=== PATIENT | male | born 1985 | race African-American/Black ===

== ENCOUNTER 2016-11-13 21:02 | Emergency (ER) | payer MEDICAID, OTHER ==
[2016-11-13] MEDS ORDERED: cefTRIAXone SOD 250 MG VIAL (J0696) As Ordered ONE (21:29)
[2016-11-13] MEDS ORDERED: LIDOCAINE 1% MDV 20ML VIAL As Ordered ONE (21:29)
--- NOTE | 2016-11-13 22:20 | REPUSA ---
Clinical history: Pain. Findings: Real-time ultrasound imaging of the testicles and scrotum was performed. The right testicle measures 4.3 x 2.5 x 3.1 cm. The left testicle measures 3.9 x 2.2 x 3.0 cm. The testicles demonstrat e normal echo texture and echogenicity. Normal color Doppler flow and arterial waveforms are seen holli aterally. No fluid collections are seen. Impression: Unremarkable ultrasound examination of the testicles.
--- NOTE | 2016-11-13 22:25 | EDDOCDS ---
Physician Documentation [facility] Name: Lio Dacosta Age: 31 yrs Sex: Male : 1985 Arrival Date: 11/13/2016 Time: 21:02 Bed PR Private MD: NO PRIMARY PHYSICIAN, . Disposition: 11/13/16 22:10 Discharged to Home/Self Care. Impression: Epididymitis. - Condition is Stable. - Discharge Instructions: Epididymitis. - Prescriptions for Doxycycline Hyclate 100 mg Oral Tablet - take 1 tablet by ORAL route every 12 hours; 20 tablet. Ibuprofen 600 mg Oral Tablet - take 1 tablet by ORAL route every 6 hours As needed take with food; 30 tablet. - Medication Reconciliation, Local Pharmacy Hours form. - [facility]; When: 4 - 5 days; Reason: Recheck today's complaints, Continuance of care. - Problem is an ongoing problem. - Symptoms are unchanged. Historical: - Allergies: no known allergies; - Home Meds: 1. none - PMHx: none; - PSHx: none; - Social history: Smoking status: Patient states was never smoker of tobacco. Patient uses street drugs, marijuana, No barriers to communication noted, The patient speaks fluent Yakut. - Family history: Not pertinent. - : The pt / caregiver states he / she is not on anticoagulants. Home medication list is obtained from the patient. - Exposure Risk Screening:: None identified. Vital Signs: 11/13 21:03 BP 158 / 60; Pulse 66; Resp 18 S; Temp 97.8(O); Pulse Ox 100% on R/A; Weight 68.04 kg / dd6 150 lbs (R); Height 5 ft. 8 in. (172.72 cm) (R); 22:21 BP 122 / 70; Pulse 70; Resp 20 S; Temp 96.3(O); Pulse Ox 100% on R/A; ms2 21:03 Body Mass Index 22.81 (68.04 kg, 172.72 cm) dd6 MDM: 21:20 cefTRIAXone 250 mg IM once ordered. ke 21:21 US Scrotal Ordered. EDMS 21:52 Financial registration complete. gjb 21:56 DUPLEX SCAN LIMITED (DOPPLER) Ordered. EDMS 22:12 [place] [place] was scanned into [employer] and attached to record. gjb Administered Medications: 21:37 Drug: cefTRIAXone 250 mg Route: IM; Site: right gluteus; [facility] Signatures: Dispatcher [employer] Ermias Nina RN RN ms2 Rosendo Gonsalves FNP FNP ke Smith, Mallory, RN RN ms18 Izzy Peralta Jane RN [facility] The chart was reviewed and I authenticate all verbal orders and agree with the evaluation and treatment provided.Attachments: 22:12 [place] [place] leonardo MTDD
--- NOTE | 2016-11-13 22:25 | EDDOCDS ---
Nurse's Notes [facility] Name: Lio Dacosta Age: 31 yrs Sex: Male : 1985 Arrival Date: 11/13/2016 Time: 21:02 Bed PR Private MD: NO PRIMARY PHYSICIAN, . Diagnosis: Epididymitis Presentation: 11/13 21:04 Presenting complaint: Patient states: that he is having R testicle pain for approx 1 ms18 week. Adult Sepsis Screening: The patient does not have new or worsening altered mentation. Patient's respiratory rate is less than 22. Systolic blood pressure is greater than 100. Patient has a qSOFA score of 0- Negative Sepsis Screen. Suicide/Homicide risk assessment- the patient denies having any suicidal and/or homicidal ideations and does not present with any other emotional, behavioral or mental health complaints. Status: Patient is not a environmental services tech or dependent. Transition of care: patient was not received from another setting of care. 21:04 Acuity: KHURRAM Level 3 ms18 21:04 Method Of Arrival: Walkin/Carried/Asstd ms18 Triage Assessment: 21:05 General: Appears in no apparent distress, Behavior is appropriate for age, cooperative. ms18 Pain: Location: pelvis Pain currently is 7 out of 10 on a pain scale. HIV screening NA for this visit Offered previously. Neurological: No deficits noted. Respiratory: Airway is patent Respiratory effort is even, unlabored. :. Derm: Skin is pink, warm & dry. normal. Historical: - Allergies: no known allergies; - Home Meds: 1. none - PMHx: none; - PSHx: none; - Social history: Smoking status: Patient states was never smoker of tobacco. Patient uses street drugs, marijuana, No barriers to communication noted, The patient speaks fluent Lithuanian. - Family history: Not pertinent. - : The pt / caregiver states he / she is not on anticoagulants. Home medication list is obtained from the patient. - Exposure Risk Screening:: None identified. Screenin:23 Screening information is obtained from prior medical records. Fall risk: No risks ms2 identified. Assistance ADL's: requires no assistance with activities of daily living. Abuse/DV Screen: The patient / caregiver reports he/she is: not in a situation that causes fear, pain or injury. Nutritional screening: No deficits noted. Advance Directives: Currently, there is no health care proxy. There is no active DNR order. There is no living will. There is no Power of Chief Engineer. Advance directive information has not previously been placed in an [facility] medical record. Further advance directive information is declined. home support is adequate. Assessment: 22:21 Adult Sepsis Screening: The patient does not have new or worsening altered mentation. ms2 Patient's respiratory rate is less than 22. Systolic blood pressure is greater than 100. Patient has a qSOFA score of 0- Negative Sepsis Screen. General: Appears in no apparent distress, Behavior is cooperative, pleasant. Pain: Pain currently is 7 out of 10 on a pain scale. Neurological: Level of Consciousness is awake, alert, obeys commands. Respiratory: No deficits noted. Airway is patent Respiratory effort is even, unlabored, Respiratory pattern is regular, symmetrical. Derm: Skin is pink, warm & dry. Musculoskeletal: Range of motion intact in all extremities. Vital Signs: 21:03 BP 158 / 60; Pulse 66; Resp 18 S; Temp 97.8(O); Pulse Ox 100% on R/A; Weight 68.04 kg dd6 (R); Height 5 ft. 8 in. (172.72 cm) (R); 22:21 BP 122 / 70; Pulse 70; Resp 20 S; Temp 96.3(O); Pulse Ox 100% on R/A; ms2 21:03 Body Mass Index 22.81 (68.04 kg, 172.72 cm) dd6 Vitals: 21:03 Log In Time: November 13, 2016 at 21:01. dd6 ED Course: 21:03 Patient visited by Pepito Burt PCA. dd6 21:03 NO PRIMARY PHYSICIAN, . is Private Physician. dd6 21:03 Patient moved to Waiting dd6 21:04 Patient moved to Pre RCE dd6 21:05 Triage Initiated ms18 21:07 Patient moved to Triage 2 ms18 21:15 [facility] ke 21:16 Patient visited by Rosendo Gonsalves FNP. ke 21:16 Patient visited by Rosendo Gonsalves FNP. ke 21:39 Patient moved to Ultrasound dmg 21:51 Patient moved to TR1 ms18 21:55 Patient visited by Rosendo Gonsalves FNP. ke 22:10 [facility] is Referral Physician. ke 22:12 [facility] Payment Agreement was scanned into [employer] and attached to record. gjb 22:14 Patient moved to PR ms2 22:23 The patient / caregiver is instructed regarding the plan of care and ED course. ms2 22:23 No IV's were initiated during this patient's visit. No procedures done that require ms2 assistance. Administered Medications: 21:37 Drug: cefTRIAXone 250 mg Route: IM; Site: right gluteus; c[facility] Order Results: There are currently no results for this order. Outcome: 22:10 Discharge ordered by Provider. ke 22:23 Discharge Assessment: patient administered narcotics - no. The following High Risk ms2 Discharge criteria are identified: None. Discharged to home ambulatory. Condition: stable. Discharge instructions given to patient, Instructed on discharge instructions, follow up and referral plans. medication usage, Demonstrated understanding of instructions, medications, Pt was receptive of discharge instructions/ teaching. Prescriptions given X 2 faxed. Ultrasound Study completed. Property sent home with patient. 22:24 Patient left the ED. ms2 Signatures: Ermias Whitney,RN RN ms2 Lily Aguirre Karl, QUARTZ ORIENTATOR QUARTZ ORIENTATOR Pepito Burt, CONDITIONING ROOM WORKER CONDITIONING ROOM WORKER dd6 Claudette VasquezRN RN Miladis Banuelos RN RN ms18 Izzy Peralta MTDD
--- NOTE | 2016-11-15 23:25 | EDDOCDS ---
Nurse's Notes [facility] Name: Lio Dacosta Age: 31 yrs Sex: Male : 1985 Arrival Date: 11/13/2016 Time: 21:02 Bed PR Private MD: NO PRIMARY PHYSICIAN, . Diagnosis: Epididymitis Presentation: 11/13 21:04 Presenting complaint: Patient states: that he is having R testicle pain for approx 1 ms18 week. Adult Sepsis Screening: The patient does not have new or worsening altered mentation. Patient's respiratory rate is less than 22. Systolic blood pressure is greater than 100. Patient has a qSOFA score of 0- Negative Sepsis Screen. Suicide/Homicide risk assessment- the patient denies having any suicidal and/or homicidal ideations and does not present with any other emotional, behavioral or mental health complaints. Status: Patient is not a sales agent food vending service or dependent. Transition of care: patient was not received from another setting of care. 21:04 Acuity: KHURRAM Level 3 ms18 21:04 Method Of Arrival: Walkin/Carried/Asstd ms18 Triage Assessment: 21:05 General: Appears in no apparent distress, Behavior is appropriate for age, cooperative. ms18 Pain: Location: pelvis Pain currently is 7 out of 10 on a pain scale. HIV screening NA for this visit Offered previously. Neurological: No deficits noted. Respiratory: Airway is patent Respiratory effort is even, unlabored. :. Derm: Skin is pink, warm & dry. normal. Historical: - Allergies: no known allergies; - Home Meds: 1. none - PMHx: none; - PSHx: none; - Social history: Smoking status: Patient states was never smoker of tobacco. Patient uses street drugs, marijuana, No barriers to communication noted, The patient speaks fluent Czech. - Family history: Not pertinent. - : The pt / caregiver states he / she is not on anticoagulants. Home medication list is obtained from the patient. - Exposure Risk Screening:: None identified. Screenin:23 Screening information is obtained from prior medical records. Fall risk: No risks ms2 identified. Assistance ADL's: requires no assistance with activities of daily living. Abuse/DV Screen: The patient / caregiver reports he/she is: not in a situation that causes fear, pain or injury. Nutritional screening: No deficits noted. Advance Directives: Currently, there is no health care proxy. There is no active DNR order. There is no living will. There is no Power of Refrigerating Engineer Head. Advance directive information has not previously been placed in an [facility] medical record. Further advance directive information is declined. home support is adequate. Assessment: 22:21 Adult Sepsis Screening: The patient does not have new or worsening altered mentation. ms2 Patient's respiratory rate is less than 22. Systolic blood pressure is greater than 100. Patient has a qSOFA score of 0- Negative Sepsis Screen. General: Appears in no apparent distress, Behavior is cooperative, pleasant. Pain: Pain currently is 7 out of 10 on a pain scale. Neurological: Level of Consciousness is awake, alert, obeys commands. Respiratory: No deficits noted. Airway is patent Respiratory effort is even, unlabored, Respiratory pattern is regular, symmetrical. Derm: Skin is pink, warm & dry. Musculoskeletal: Range of motion intact in all extremities. Vital Signs: 21:03 BP 158 / 60; Pulse 66; Resp 18 S; Temp 97.8(O); Pulse Ox 100% on R/A; Weight 68.04 kg dd6 (R); Height 5 ft. 8 in. (172.72 cm) (R); 22:21 BP 122 / 70; Pulse 70; Resp 20 S; Temp 96.3(O); Pulse Ox 100% on R/A; ms2 21:03 Body Mass Index 22.81 (68.04 kg, 172.72 cm) dd6 Vitals: 21:03 Log In Time: November 13, 2016 at 21:01. dd6 ED Course: 21:03 Patient visited by Pepito Burt PCA. dd6 21:03 NO PRIMARY PHYSICIAN, . is Private Physician. dd6 21:03 Patient moved to Waiting dd6 21:04 Patient moved to Pre RCE dd6 21:05 Triage Initiated ms18 21:07 Patient moved to Triage 2 ms18 21:15 [facility] ke 21:16 Patient visited by Rosendo Gonsalves FNP. ke 21:16 Patient visited by Rosendo Gonsalves FNP. ke 21:39 Patient moved to Ultrasound dmg 21:51 Patient moved to TR1 ms18 21:55 Patient visited by Rosendo Gonsalves FNP. ke 22:10 [facility] is Referral Physician. ke 22:12 [facility] Payment Agreement was scanned into [employer] and attached to record. gjb 22:14 Patient moved to PR ms2 22:23 The patient / caregiver is instructed regarding the plan of care and ED course. ms2 22:23 No IV's were initiated during this patient's visit. No procedures done that require ms2 assistance. 22:46 US Scrotal Returned. EDMS 11/14 12:00 T-Sheet-- Draft Copy was scanned into [employer] and attached to record. gb 12:00 Radiology Report was scanned into [employer] and attached to record. gb Administered Medications: 11/13 21:37 Drug: cefTRIAXone 250 mg Route: IM; Site: right gluteus; [facility] Order Results: Radiology Order: US Scrotal Test: US Scrotal REASON FOR EXAMINATION: testicular pain; ; Clinical history: Pain.; Findings: Real-time ultrasound imaging of the testicles and scrotum was performed. The right testicle; measures 4.3 x 2.5 x 3.1 cm. The left testicle measures 3.9 x 2.2 x 3.0 cm. The testicles demonstrat; e normal echo texture and echogenicity. Normal color Doppler flow and arterial waveforms are seen holli; aterally. No fluid collections are seen.; Impression: Unremarkable ultrasound examination of the testicles.; ; Outcome: 22:10 Discharge ordered by Provider. ke 22:23 Discharge Assessment: patient administered narcotics - no. The following High Risk ms2 Discharge criteria are identified: None. Discharged to home ambulatory. Condition: stable. Discharge instructions given to patient, Instructed on discharge instructions, follow up and referral plans. medication usage, Demonstrated understanding of instructions, medications, Pt was receptive of discharge instructions/ teaching. Prescriptions given X 2 faxed. Ultrasound Study completed. Property sent home with patient. 22:24 Patient left the ED. ms2 Signatures: Dispatcher [employer] Ermias Nina,COLLEEN RN ms2 Lily Agiurre Gloria, Reg Reg gb oRsendo Gonsalves, WAFER FABRICATION TECHNICIAN WAFER FABRICATION TECHNICIAN Pepito Beal, LUMBER ESTIMATOR LUMBER ESTIMATOR dd6 Claudette Vasquez RN RN [facility] Miladis Rodríguez RN RN ms18 Izzy Peralta Chart Complete MTDD
--- NOTE | 2016-11-15 23:25 | EDDOCDS ---
Physician Documentation [facility] Name: Lio Dacosta Age: 31 yrs Sex: Male : 1985 Arrival Date: 11/13/2016 Time: 21:02 Bed PR Private MD: NO PRIMARY PHYSICIAN, . Disposition: 11/13/16 22:10 Discharged to Home/Self Care. Impression: Epididymitis. - Condition is Stable. - Discharge Instructions: Epididymitis. - Prescriptions for Doxycycline Hyclate 100 mg Oral Tablet - take 1 tablet by ORAL route every 12 hours; 20 tablet. Ibuprofen 600 mg Oral Tablet - take 1 tablet by ORAL route every 6 hours As needed take with food; 30 tablet. - Medication Reconciliation, Local Pharmacy Hours form. - Follow up: [facility]; When: 4 - 5 days; Reason: Recheck today's complaints, Continuance of care. - Problem is an ongoing problem. - Symptoms are unchanged. Historical: - Allergies: no known allergies; - Home Meds: 1. none - PMHx: none; - PSHx: none; - Social history: Smoking status: Patient states was never smoker of tobacco. Patient uses street drugs, marijuana, No barriers to communication noted, The patient speaks fluent Kinyarwanda. - Family history: Not pertinent. - : The pt / caregiver states he / she is not on anticoagulants. Home medication list is obtained from the patient. - Exposure Risk Screening:: None identified. Vital Signs: 11/13 21:03 BP 158 / 60; Pulse 66; Resp 18 S; Temp 97.8(O); Pulse Ox 100% on R/A; Weight 68.04 kg / dd6 150 lbs (R); Height 5 ft. 8 in. (172.72 cm) (R); 22:21 BP 122 / 70; Pulse 70; Resp 20 S; Temp 96.3(O); Pulse Ox 100% on R/A; ms2 21:03 Body Mass Index 22.81 (68.04 kg, 172.72 cm) dd6 MDM: 21:20 cefTRIAXone 250 mg IM once ordered. ke 21:21 US Scrotal Ordered. EDMS 21:52 Financial registration complete. gjb 21:56 DUPLEX SCAN LIMITED (DOPPLER) Ordered. EDMS 22:12 [place] Payment Agreement was scanned into [employer] and attached to record. gjb 11/14 12:00 T-Sheet-- Draft Copy was scanned into [employer] and attached to record. azeem 12:00 Radiology Report was scanned into [employer] and attached to record. gb Administered Medications: 11/13 21:37 Drug: cefTRIAXone 250 mg Route: IM; Site: right gluteus; [facility] Signatures: Dispatcher [employer] EDErmias Morrison RN RN ms2 Shell Felton, Reg Reg gb Rosendo Gonsalves FNP FNP ke Smith, Mallory, RN RN ms18 Izzy Peralta [facility] Claudette Vasquez RN [facility] The chart was reviewed and I authenticate all verbal orders and agree with the evaluation and treatment provided.Attachments: 22:12 [place] Payment Agreement gjb 11/14 12:00 T-Sheet-- Draft Copy gb Chart Complete MTDD
--- NOTE | 2016-11-15 23:25 | EDDOCDS ---
Physician Documentation [facility] Name: Lio Dacosta Age: 31 yrs Sex: Male : 1985 Arrival Date: 11/13/2016 Time: 21:02 Bed PR Private MD: NO PRIMARY PHYSICIAN, . Disposition: 11/13/16 22:10 Discharged to Home/Self Care. Impression: Epididymitis. - Condition is Stable. - Discharge Instructions: Epididymitis. - Prescriptions for Doxycycline Hyclate 100 mg Oral Tablet - take 1 tablet by ORAL route every 12 hours; 20 tablet. Ibuprofen 600 mg Oral Tablet - take 1 tablet by ORAL route every 6 hours As needed take with food; 30 tablet. - Medication Reconciliation, Local Pharmacy Hours form. - Follow up: [facility]; When: 4 - 5 days; Reason: Recheck today's complaints, Continuance of care. - Problem is an ongoing problem. - Symptoms are unchanged. Historical: - Allergies: no known allergies; - Home Meds: 1. none - PMHx: none; - PSHx: none; - Social history: Smoking status: Patient states was never smoker of tobacco. Patient uses street drugs, marijuana, No barriers to communication noted, The patient speaks fluent Romansh. - Family history: Not pertinent. - : The pt / caregiver states he / she is not on anticoagulants. Home medication list is obtained from the patient. - Exposure Risk Screening:: None identified. Vital Signs: 11/13 21:03 BP 158 / 60; Pulse 66; Resp 18 S; Temp 97.8(O); Pulse Ox 100% on R/A; Weight 68.04 kg / dd6 150 lbs (R); Height 5 ft. 8 in. (172.72 cm) (R); 22:21 BP 122 / 70; Pulse 70; Resp 20 S; Temp 96.3(O); Pulse Ox 100% on R/A; ms2 21:03 Body Mass Index 22.81 (68.04 kg, 172.72 cm) dd6 MDM: 21:20 cefTRIAXone 250 mg IM once ordered. ke 21:21 US Scrotal Ordered. EDMS 21:52 Financial registration complete. gjb 21:56 DUPLEX SCAN LIMITED (DOPPLER) Ordered. EDMS 22:12 [place] Payment Agreement was scanned into [employer] and attached to record. gjb 11/14 12:00 T-Sheet-- Draft Copy was scanned into [employer] and attached to record. azeem 12:00 Radiology Report was scanned into [employer] and attached to record. gb Administered Medications: 11/13 21:37 Drug: cefTRIAXone 250 mg Route: IM; Site: right gluteus; [facility] Signatures: Dispatcher [employer] EDErmias Morrison RN RN ms2 Shell Felton, Reg Reg gb Rosendo Gonsalves FNP FNP ke Smith, Mallory, RN RN ms18 Izzy Peralta [facility] Claudette Vasquez RN [facility] The chart was reviewed and I authenticate all verbal orders and agree with the evaluation and treatment provided.Attachments: 22:12 [facility] Payment Agreement gjb 11/14 12:00 T-Sheet-- Draft Copy gb Chart Complete MTDD
== END 2016-11-13 22:24 | disposition home or self-care (01) ==
LOC: M ED 21:02
DX: N45.1 Epididymitis (principal)

== ENCOUNTER 2017-01-13 00:47 | Emergency (ER) | payer OTHER ==
[~2017-01-13] VITALS: Ht 172.7 cm; Wt 68.0 kg
[2017-01-13 00:52] VITALS: BP 161/83
== END 2017-01-13 07:27 | disposition left against medical advice (07) ==
LOC: M ED 01:49
DX: N50.819 Testicular pain, unspecified (principal); Z53.21 Procedure and treatment not carried out due to patient leaving prior to being seen by health care provider

== ENCOUNTER 2017-01-18 05:35 | Emergency (ER) | payer OTHER ==
[~2017-01-18] VITALS: Ht 172.7 cm; Wt 70.3 kg
[2017-01-18 05:47] VITALS: BP 147/68
[2017-01-18] MEDS ORDERED: DOXY100C37 PO (06:13)
[2017-01-18] MEDS ORDERED: AZITHROMYCIN 250 MG TAB PO ONE (06:15)
[2017-01-18] MEDS ORDERED: cefTRIAXone SOD 500 MG VIAL (J0696) IM ONE (06:15)
[2017-01-18] MEDS ORDERED: LIDOCAINE 1% MDV 20ML VIAL As Ordered ONE (06:26)
[2017-01-18] MEDS ORDERED: cefTRIAXone SOD 250 MG VIAL (J0696) As Ordered ONE (06:26)
== END 2017-01-18 06:53 | disposition home or self-care (01) ==
LOC: M ED 05:57
DX: N34.2 Other urethritis (principal)

== ENCOUNTER 2017-04-09 04:01 | Emergency (ER) | payer OTHER ==
[~2017-04-09] VITALS: Ht 172.7 cm; Wt 65.8 kg
[~2017-04-09 04:01] MED LIST: DOXY100C37 PO
[2017-04-09] MEDS ORDERED: DOXYCYCLINE HYCLATE 100 MG TAB PO ONE (06:15)
[2017-04-09] MEDS ORDERED: DOXY100C37 PO (06:15)
[2017-04-09] MEDS ORDERED: cefTRIAXone SOD 250 MG VIAL (J0696) IM ONE (06:15)
[2017-04-09] MEDS ORDERED: LIDOCAINE 1% MDV 20ML VIAL As Ordered ONE (06:18)
[2017-04-09 06:49] VITALS: BP 122/73
== END 2017-04-09 06:50 | disposition home or self-care (01) ==
LOC: M ED 04:47
DX: N45.1 Epididymitis (principal)

== ENCOUNTER 2017-06-01 05:26 | Emergency (ER) | payer OTHER ==
--- NOTE | 2017-06-01 07:00 | REPUSA ---
TESTICULAR SONOGRAM History: Pain. Comparison studies: None available Technique: Multiple real-time images of the scrotal contents were obtained. Findings: The testes are normal in size. Doppler flow is demonstrated on both testes. There are no findings rafael picious for testicular torsion. There are also no findings suspicious for testicular malignancy. The right testicle measures 4.2x2x3.2 cm. The left testicle measures 4.4x2 x 3 cm. Right epididymis measures to 13 mm. The left epididymis measures 10.3 mm. The right epididymal head cyst measuring 2.1 mm. Bilateral testicular microlithiasis. Bilateral small hydroceles. Small left varicocele. No acute significant abnormality of either epididymis is found sonographically. No findings suspiciou s for epididymitis are identified. Impression: No evidence of testicular torsion is identified. 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 Right epididymal head cyst which is a chronic finding. Small bilateral hydroceles, probably benign chronic finding. Small left varicocele. Chronic finding. No evidence of testicular torsion.
[2017-06-01] MEDS ORDERED: AZITHROMYCIN 250 MG TAB PO ONE (07:45)
[2017-06-01] MEDS ORDERED: cefTRIAXone SOD 250 MG VIAL (J0696) IM ONE (07:45)
[2017-06-01 07:50] VITALS: BP 114/78
--- NOTE | 2017-06-01 15:42 | ED PDOC ---
Post-Departure Follow-Up dr villatoro faxed formal report of scrotal us for fu Sultana Heller MD Jun 01, 2017 15:42
== END 2017-06-01 07:51 | disposition home or self-care (01) ==
LOC: M ED 05:26
DX: N50.811 Right testicular pain (principal); N50.3 Cyst of epididymis; N43.3 Hydrocele, unspecified; I86.1 Scrotal varices; Z20.2 Contact with and (suspected) exposure to infections with a predominantly sexual mode of transmission
CPT/HCPCS: 76870; 81001; 87086; 87491; 87591; 93976; 96372; 99282; J0696

== ENCOUNTER 2017-08-26 07:33 | Emergency (ER) | payer MEDICAID, OTHER, SELFPAY ==
[~2017-08-26] VITALS: Ht 172.7 cm; Wt 70.5 kg
[2017-08-26 07:41] VITALS: BP 140/77
[2017-08-26] MEDS ORDERED: MACR100C43 PO (08:57)
== END 2017-08-26 09:14 | disposition home or self-care (01) ==
LOC: M ED 07:33
DX: N39.0 Urinary tract infection, site not specified (principal); Z87.440 Personal history of urinary (tract) infections; N50.811 Right testicular pain

== ENCOUNTER 2017-09-28 06:12 | Emergency (ER) | payer MEDICAID ==
[~2017-09-28] VITALS: Ht 175.3 cm; Wt 68.2 kg
[~2017-09-28 06:12] MED LIST changes: +MACR100C43 PO
[2017-09-28 06:13] VITALS: BP 121/72
[2017-09-28] MEDS ORDERED: cefTRIAXone SOD 250 MG VIAL (J0696) IM ONE (07:00)
[2017-09-28] MEDS ORDERED: AZITHROMYCIN 250 MG TAB PO ONE (07:00)
[2017-09-28] MEDS ORDERED: BACT800T5 PO (07:26)
== END 2017-09-28 07:41 | disposition home or self-care (01) ==
LOC: M ED 06:12
DX: Z20.2 Contact with and (suspected) exposure to infections with a predominantly sexual mode of transmission (principal); N34.1 Nonspecific urethritis; N45.1 Epididymitis; N30.90 Cystitis, unspecified without hematuria; F12.10 Cannabis abuse, uncomplicated
CPT/HCPCS: 81001; 87086; 87491; 87591; 96372; 99283; J0696

== ENCOUNTER → 2017-10-24 | Outpatient (REF) | payer MEDICAID, OTHER ==
[~2017-10-24] MED LIST changes: +BACT800T5 PO
== END ==
LOC: M SMT 12:46
PROVIDERS: ATTEND Nurse Practitioner Women's Health
DX: N50.819 Testicular pain, unspecified (principal)

== ENCOUNTER 2017-12-02 05:26 | Emergency (ER) | payer OTHER, MEDICAID ==
[2017-12-02] MEDS: AZITHROMYCIN 250 MG TAB PO (06:45)
[2017-12-02 10:19] LABS: CHLAMYDIA DNA AMPLIFICATION NEGATIVE (NEGATIVE); GC DNA AMPLIFICATION NEGATIVE (NEGATIVE)
== END 2017-12-02 08:29 | disposition home or self-care (01) ==
LOC: M ED 05:26
DX: N50.9 Disorder of male genital organs, unspecified (principal); N50.811 Right testicular pain; N50.819 Testicular pain, unspecified; N50.3 Cyst of epididymis
CPT/HCPCS: 76870

== ENCOUNTER → 2017-12-27 | Outpatient (REF) | payer OTHER, MEDICAID ==
[2017-12-27 17:50] LABS: APPEARANCE, URINE CLEAR (CLEAR); BACTERIA, URINE AUTO NEGATIVE (NEGATIVE); BILIRUBIN, URINE AUTO NEGATIVE (NEGATIVE); BLOOD, URINE BLOOD NEGATIVE (NEGATIVE); COLOR, URINE YELLOW (YELLOW); GLUCOSE, URINE (UA) AUTO NEGATIVE (NEGATIVE); KETONE, URINE AUTO NEGATIVE (NEGATIVE); LEUKOCYTE ESTERASE, URINE AUTO NEGATIVE (NEGATIVE); MUCUS, URINE SMALL (NEGATIVE); NITRITE, URINE AUTO NEGATIVE (NEGATIVE); PROTEIN, URINE AUTO 1+ mg/dL (NEGATIVE); RBC, URINE AUTO 1 /HPF (0-3); SPECIFIC GRAVITY URINE AUTO 1.025 (1.002-1.035); SQUAMOUS EPITHELIAL CELL UR AU 0 /HPF (0-6); UROBILINOGEN, URINE AUTO 0.2 mg/dL (0.0-2.0); WBC, URINE AUTO 3 /HPF (0-3)
[2017-12-27 19:39] LABS: CHLAMYDIA DNA AMPLIFICATION NEGATIVE (NEGATIVE); GC DNA AMPLIFICATION NEGATIVE (NEGATIVE)
== END ==
LOC: M SMT 17:04
DX: N50.819 Testicular pain, unspecified (principal)

== ENCOUNTER 2018-03-02 03:52 | Emergency (ER) | payer OTHER ==
[2018-03-02 06:27] LABS: KETONE, URINE AUTO RFX NEGATIVE (NEGATIVE); LEUKOCYTE ESTERASE UR AUTO RFX NEGATIVE (NEGATIVE); NITRITE, URINE AUTO RFX NEGATIVE (NEGATIVE); RBC, URINE AUTO RFX 0 /HPF (0-3); SPECIFIC GRAVITY UR AUTO RFX 1.003 (1.002-1.035); SQUAM EPITHELIAL CELL UR AURFX 1 /HPF (0-6); WBC, URINE AUTO RFX 1 /HPF (0-3)
[2018-03-02] MEDS: PHENAZOPYRIDINE 100 MG TAB PO (06:52)
[2018-03-02 09:02] LABS: CHLAMYDIA DNA AMPLIFICATION NEGATIVE (NEGATIVE); GC DNA AMPLIFICATION NEGATIVE (NEGATIVE)
== END 2018-03-02 07:08 | disposition home or self-care (01) ==
LOC: M ED 03:52
DX: Z20.2 Contact with and (suspected) exposure to infections with a predominantly sexual mode of transmission (principal); R30.0 Dysuria; Z87.440 Personal history of urinary (tract) infections
CPT/HCPCS: 81001

== ENCOUNTER 2018-05-17 04:35 | Emergency (ER) | payer OTHER ==
[2018-05-17 05:19] LABS: KETONE, URINE AUTO RFX NEGATIVE (NEGATIVE); NITRITE, URINE AUTO RFX NEGATIVE (NEGATIVE); RBC, URINE AUTO RFX 1 /HPF (0-3); SPECIFIC GRAVITY UR AUTO RFX 1.023 (1.002-1.035); SQUAM EPITHELIAL CELL UR AURFX 1 /HPF (0-6)
[2018-05-17 05:21] LABS: LEUKOCYTE ESTERASE UR AUTO RFX 2+ (NEGATIVE); WBC, URINE AUTO RFX 51 /HPF (0-3)
[2018-05-17 06:45] LABS: CHLAMYDIA DNA AMPLIFICATION NEGATIVE (NEGATIVE); GC DNA AMPLIFICATION NEGATIVE (NEGATIVE)
== END 2018-05-17 07:37 | disposition home or self-care (01) ==
LOC: M ED 04:35
DX: N39.0 Urinary tract infection, site not specified (principal); Z87.440 Personal history of urinary (tract) infections
CPT/HCPCS: 81001

== ENCOUNTER 2018-05-23 01:07 | Emergency (ER) | payer OTHER | END 2018-05-23 01:42 | disposition home or self-care (01) | LOC: M ED 01:07 | DX: L30.9 Dermatitis, unspecified (principal); Z87.440 Personal history of urinary (tract) infections | CPT/HCPCS: 99282 ==

== ENCOUNTER 2018-10-25 04:41 | Emergency (ER) | payer MEDICAID, OTHER, SELFPAY ==
[2018-10-25 04:41] VITALS: BP 130/67
[~2018-10-25 04:41] MED LIST changes: +BACI500O8 TOP; +KEFL500C17 PO; +PYRI1TAB5 PO
--- NOTE | 2018-10-25 06:36 | REPVR ---
EXAM: US Scrotum and US Duplex Artery or Vein, Scrotum, Limited EXAM DATE/TIME: 10/25/2018 5:27 AM CLINICAL HISTORY: 33 years old, male; Pain; Scrotum pain; Additional info: Testicular pain TECHNIQUE: Real-time ultrasound of the scrotum. Real-time duplex ultrasound scan of the arterial or venous flow of the scrotum with B-mode, color Doppler flow and spectral waveform analysis. Limited exam. COMPARISON: Scrotal, US 12/02/2017 6:47 AM FINDINGS: Right Testicle: Right testicle measures 3.1 x 3.9 x 2.2 cm. The echogenicity is overall homogeneous, but there are echogenic foci, consistent with microcalcifications, also seen previously. Normal arterial and venous blood flow are seen on color and pulsed Doppler. The peak systolic velocity is 4 cm/s. Left Testicle: The left testicle measures 3.1 x 4.4 x 2.3 cm. The echogenicity is overall homogeneous, but a few punctate echogenic foci consistent with microcalcifications are again seen within the left testicle, as on the prior exam. Normal blood flow is seen within the left testicle on color Doppler imaging. On pulsed Doppler imaging, normal arterial blood flow is seen, with a peak systolic velocity of 5 cm/s. Epididymides: The left epididymal head measures 9 mm in diameter. There is no significant hyperemia of the left epididymis. The right epididymal head measures 0.9 cm in diameter. There is increased vascularity within the right epididymis on color flow imaging. Scrotum: There is no evidence of hydrocele or varicocele. IMPRESSION: Mild hyperemia of the right epididymis, possibly due to mild epididymitis. No significant enlargement of the right epididymis. A few scattered microcalcifications in the testes, without significant change. No evidence of orchitis or testicular torsion. Electronically signed by: Nicky Loyd On 10/25/2018 06:36:23 AM
[2018-10-25] MEDS ORDERED: LEVA1TAB2 PO (06:37)
[2018-10-25] MEDS ORDERED: cefTRIAXone SOD 250 MG VIAL (J0696) IM ONE (06:45)
[2018-10-25] MEDS ORDERED: LIDOCAINE 1% SDV 5 ML VIAL DILUENT ONE (06:45)
[2018-10-25] MEDS ORDERED: LevoFLOXacin 500 MG TABLET PO ONE (06:45)
--- NOTE | 2018-10-25 07:04 | ED PDOC ---
Post-Departure Follow-Up certified letter sent re formal read of scrotal us - needs urology fu due to joshua cifications Sultana Heller MD Oct 25, 2018 07:04
[2018-10-25 08:04] LABS: CHLAMYDIA DNA AMPLIFICATION NEGATIVE (NEGATIVE); GC DNA AMPLIFICATION NEGATIVE (NEGATIVE)
== END 2018-10-25 07:02 | disposition home or self-care (01) ==
LOC: M ED 04:41
DX: N45.1 Epididymitis (principal); Z87.440 Personal history of urinary (tract) infections; F12.10 Cannabis abuse, uncomplicated
CPT/HCPCS: 76870; 81001; 87491; 87591; 93976; 96372; 99282; J0696

== ENCOUNTER 2018-11-08 03:39 | Emergency (ER) | payer MEDICAID, SELFPAY ==
[~2018-11-08] VITALS: Ht 172.7 cm; Wt 72.7 kg
[2018-11-08 03:39] VITALS: BP 131/70
[~2018-11-08 03:39] MED LIST changes: +LEVA1TAB2 PO
--- NOTE | 2018-11-08 04:42 | REPVR ---
EXAM: US Scrotum and US Duplex Artery or Vein, Scrotum, Limited EXAM DATE/TIME: 11/08/2018 4:18 AM CLINICAL HISTORY: 33 years old, male; Pain; Scrotum pain; Additional info: Testicular pain TECHNIQUE: Real-time ultrasound of the scrotum. Real-time duplex ultrasound scan of the arterial or venous flow of the scrotum with B-mode, color Doppler flow and spectral waveform analysis. Limited exam. COMPARISON: Scrotal, US 10/25/2018 5:18 AM FINDINGS: Right Testicle: The right testicle measures 4.2 x 2.2 x 3.3 cm. The right testicle is homogeneous in echogenicity except for a few echogenic foci. A normal arterial waveform is seen within a right intratesticular artery, with a peak systolic velocity of 3 cm/s. Left Testicle: The left testicle measures 4.0 x 2.1 x 2.8 cm. The left testicle is homogeneous in echogenicity except for few echogenic foci. A normal arterial waveform is seen within a left intratesticular artery, with a peak systolic velocity of 6 cm/s. Epididymides: There is a 0.2 cm epididymal cyst or spermatocele in the right epididymis. The left epididymal head measures 0.7 cm in diameter. The right epididymal head measures 1.0 cm in diameter. There is no hyperemia to the epididymides on color-flow imaging. Scrotum: There is no evidence of hydrocele. There is no evidence of a varicocele. Other findings: There is symmetric blood flow to the testicles on color-flow imaging. IMPRESSION: 1. A few echogenic foci in the testicles, consistent with microlithiasis, as seen previously. 2. No evidence of testicular torsion, orchitis, or epididymitis. Electronically signed by: Nicky Loyd On 11/08/2018 04:42:04 AM
[2018-11-08] MEDS ORDERED: NAPROXEN 250 MG TAB PO ONE (05:15)
[2018-11-08 05:44] LABS: CHLAMYDIA DNA AMPLIFICATION NEGATIVE (NEGATIVE); GC DNA AMPLIFICATION NEGATIVE (NEGATIVE)
--- NOTE | 2018-11-11 09:37 | ED PDOC ---
Post-Departure Follow-Up dr hillman scrotal us faxed to for Sultana Chao MD Nov 11, 2018 09:37
== END 2018-11-08 05:18 | disposition home or self-care (01) ==
LOC: M ED 03:39
DX: N50.811 Right testicular pain (principal); G89.29 Other chronic pain; R10.9 Unspecified abdominal pain

== ENCOUNTER → 2018-11-14 | Outpatient (REF) | payer MEDICAID | LOC: M SMT 17:11 | PROVIDERS: ATTEND Urology Pediatric Urology | DX: N50.811 Right testicular pain (principal) ==

== ENCOUNTER 2019-10-03 04:07 | Emergency (ER) | payer SELFPAY ==
[~2019-10-03] VITALS: Ht 172.7 cm; Wt 61.4 kg
[2019-10-03 04:17] VITALS: BP 142/75
[2019-10-03] MEDS ORDERED: DOXY100C37 PO (04:42)
[2019-10-03] MEDS ORDERED: cefTRIAXone SOD 1 GM VIAL (J0696) IM ONE (04:45)
[2019-10-03] MEDS ORDERED: LIDOCAINE 1% SDV 5 ML VIAL DILUENT ONE (04:45)
[2019-10-03 06:46] LABS: CHLAMYDIA DNA AMPLIFICATION NEGATIVE (NEGATIVE); GC DNA AMPLIFICATION NEGATIVE (NEGATIVE)
== END 2019-10-03 05:30 | disposition home or self-care (01) ==
LOC: M ED 04:07
DX: N34.2 Other urethritis (principal)
CPT/HCPCS: 87491; 87591; 96372; 99282; J0696

== ENCOUNTER → 2019-11-13 | Outpatient (REF) | payer SELFPAY ==
[2019-11-13 14:14] LABS: APPEARANCE, URINE HAZY (CLEAR); BACTERIA, URINE AUTO NEGATIVE (NEGATIVE); BILIRUBIN, URINE AUTO NEGATIVE (NEGATIVE); BLOOD, URINE BLOOD NEGATIVE (NEGATIVE); COLOR, URINE YELLOW (YELLOW); GLUCOSE, URINE (UA) AUTO NEGATIVE (NEGATIVE); KETONE, URINE AUTO TRACE mg/dL (NEGATIVE); LEUKOCYTE ESTERASE, URINE AUTO NEGATIVE (NEGATIVE); MUCUS, URINE LARGE (NEGATIVE); NITRITE, URINE AUTO NEGATIVE (NEGATIVE); PROTEIN, URINE AUTO NEGATIVE (NEGATIVE); RBC, URINE AUTO 1 /HPF (0-3); SPECIFIC GRAVITY URINE AUTO 1.033 (1.002-1.035); SQUAMOUS EPITHELIAL CELL UR AU 1 /HPF (0-6); UROBILINOGEN, URINE AUTO 0.2 mg/dL (0.0-2.0); WBC, URINE AUTO 7 /HPF (0-3)
[2019-11-13 15:39] LABS: CHLAMYDIA DNA AMPLIFICATION NEGATIVE (NEGATIVE); GC DNA AMPLIFICATION NEGATIVE (NEGATIVE)
== END ==
LOC: M SMT 13:31
PROVIDERS: ATTEND Nurse Practitioner Family
DX: R36.9 Urethral discharge, unspecified (principal); N50.819 Testicular pain, unspecified

== ENCOUNTER 2024-03-23 21:51 | Emergency (ER) | payer SELFPAY ==
[~2024-03-23] VITALS: Ht 174 cm; Wt 71.0 kg
[~2024-03-23 21:51] MED LIST changes: +DOXY-323 PO; -DOXY100C37 PO
[2024-03-24] MEDS ORDERED: MAGICMW SSP (04:33)
[2024-03-24] MEDS ORDERED: KETO10TAB PO (04:33)
[2024-03-24 05:15] VITALS: BP 123/76; TEMP 98; O2SAT 99
[2024-03-24] MEDS: KETOROLAC TROMETHAMINE 10 MG TAB PO ONE (05:20)
[2024-03-24] MEDS: MAGIC MOUTHWASH 5ML ORAL SYRINGE SS ONE (05:20)
== END 2024-03-24 05:25 | disposition home or self-care (01) ==
LOC: M ED 21:51
DX: R13.10 Dysphagia, unspecified (principal); F12.10 Cannabis abuse, uncomplicated; F10.10 Alcohol abuse, uncomplicated; Z79.899 Other long term (current) drug therapy

== ENCOUNTER 2024-10-14 03:20 | Emergency (ER) | payer SELFPAY ==
[~2024-10-14] VITALS: Ht 172.7 cm; Wt 76.6 kg
[~2024-10-14 03:20] MED LIST changes: -DOXY-323 PO; +DOXY-441 PO; +KETO10TAB PO; +MAGICMW SSP
[2024-10-14 05:27] LABS: Trichomonas vaginalis (AMP) NOT DETECTED (NEGATIVE)
[2024-10-14 05:51] LABS: GC DNA AMPLIFICATION NEGATIVE (NEGATIVE)
[2024-10-14 08:50] VITALS: BP 147/67; TEMP 97.8; O2SAT 100
[2024-10-14] MEDS: KETOROLAC 60MG 2ML VIAL IM ONE (08:52)
== END 2024-10-14 08:54 | disposition home or self-care (01) ==
LOC: M ED 03:20
DX: N50.811 Right testicular pain (principal); N50.3 Cyst of epididymis
CPT/HCPCS: 76870; 81001; 87661; 87810; 87850; 93976; 96372; 99283; J1885